=== PATIENT | female | born 1945 | race Caucasian/White ===

== ENCOUNTER 2017-01-02 16:04 | Inpatient (IN) | payer MEDICARE ==
[~2017-01-02] VITALS: Ht 165.1 cm; Wt 54.8 kg
--- NOTE | ~2017-01-02 | ECH ---
Transthoracic Echocardiography Report (TTE) Demographics Patient Name RICCI CEVALLOS Date of Study 01/04/2017 J Patient Number [id number] Visit Number [id number] Date of 1945 Room Number 420 Accession Number [id number] Gender Female Age 71 year(s) Referring Tolu Levy MD Supervisor [employer] Veronica Hudson [facility] Physician Physician Himanshu Wilson MD Radiation Oncology Therapist Physician José Supervising Ordering Physician Tolu Levy MD, MD/P Nurse Stress Extrusion Press Operator Conclusions Contractility Score Summary Normal Left Ventricular contractility was noted. Summary Technically difficult exam. The estimated left ventricular ejection fraction is 60-65%. Mild to moderate left ventricular hypertrophy. Diastolic assessment reveals Grade I diastolic dysfunction. Bubble study was done, bubbles crossed to the left atrium suggesting a PFO or ASD. No significant valvular abnormalities. The ascending aorta appears mildly dilated. The maximum diameter measures 3.65 cm. Recommendation The patient will be given the results of this study by the physician who ordered the exam. Procedure Type of Study TTE procedure:Echo Complete SF. Procedure Date Date: 01/04/2017 Start: 11:39 AM Technical Quality: Fair due to patient immobility. Indications:CVA and Hypertension. Appropriate Use Criteria: 9 Contrast Medium: Bubble Study. Height: 65 inches Weight: 126 pounds BSA: 1.63 m Rhythm: Within normal limits HR: 69 bpm BP: 176/70 mmHg M-Mode/2D Measurements LV Diastolic Dimension: 4.2 cm LV Systolic Dimension: 3.32 cm LV Septum Diastolic: 1.3 cm LV PW Diastolic: 1.1 cm AO Root Dimension: 3.11 cm Cardiac Output: 5.06 l/min LA Dimension: 3.25 cm Cardiac Index: 3.1 l/min*m LA volume index: 31 ml/m LVOT: 1.98 cm RV Base: 2.88 cm LVOT VTI: 23.82 cm RV Mid: 2.08 cm LV Stroke volume: 73.31 ml RV Length: 5.76 cm LV Stroke volume index: 44.98 ml/m Doppler Measurements AV Peak Velocity: 1.25 m/s MV Peak E-Wave: 0.56 m/s AV Peak Gradient: 6.25 mmHg MV Peak A-Wave: 0.73 m/s AV Mean Gradient: 3.06 mmHg MV E/A Ratio: 0.78 LVOT Peak Velocity: 1.24 m/s MV P1/2t: 74.1 msec AV Area (Continuity):2.5 cm MV Deceleration Time: 255.4 msec TR Velocity:2.53 m/s MV Area (PHT): 2.97 cm TR Gradient:25.52 mmHg Estimated RAP:3 mmHg Estimated PASP: 28.52 mmHg Estimated RVSP: 29 mmHg RA Area: 11.93 cm Findings Left Ventricle The left ventricle is normal in size . Mild to moderate left ventricular hypertrophy. Diastolic assessment reveals Grade I diastolic dysfunction. Right Ventricle Normal right ventricle structure and function. Left Atrium Normal left atrial size. Bubble study was done, bubbles crossed to the left atrium suggesting a PFO or ASD. Right Atrium Normal right atrial size. Mitral Valve Normal mitral valve structure and function. Aortic Valve Normal aortic valve structure and function. Tricuspid Valve Normal tricuspid valve structure and function. Mild tricuspid regurgitation by color Doppler. Pulmonic Valve Normal pulmonic valve structure and function. Pericardial Effusion No evidence of pericardial effusion. Miscellaneous The ascending aorta appears mildly dilated. The maximum diameter measures 3.65 cm. Pleural Effusion No evidence of pleural effusion. Contractility Score LV regional wall motion:(0-Non visualized 1-Normal 2-Hypokinesis 3-Akinesis 4-Dyskinesis 5-Aneurysm) Signature
--- NOTE | 2017-01-04 07:50 | HP ---
ADMIT: 01/02/2017 RM/LOC: 420 [facility] MR#: [id number] [address] [address] GABRIELLE CEVALLSO [address] [place] [address] History and Physical SEX: F AGE: 71 : 1945 DATE OF SERVICE: CHIEF COMPLAINT AND HISTORY OF PRESENT ILLNESS: She presented to the emergency room with family, with some subtle changes in her mental status over the last 24 hours. According to family, she has been a little slow mentally, maybe a little confused, they thought her speech has altered, thought her gait was a little more unsteady. Gabrielle acknowledges the change, but she denies any other symptoms such as headache, nausea, vomiting, or pain anywhere. She had an extensive evaluation in the emergency room. Her stroke scale was scored a 0. She had a head CT, however, which showed some subtle changes in the basal ganglia and a caudate nucleus, an acute ischemic infarct cannot be ruled out. MRI was suggested. There were also some mild chronic small vessel ischemic changes, and some mild brain atrophy. Various laboratory studies were unrevealing. Chest x-ray and CTA of the chest were unrevealing. We recommend that she be placed OPO on telemetry, where she will be monitored closely for any additional changes and we will do an MRI of the brain with contrast tomorrow. The patient is agreeable to this approach. PAST MEDICAL HISTORY: She said she had some stroke-like symptoms 4 to 5 years ago in another community, has not had any real followup since, does not see any other physicians, does not carry diagnosis of any other significant diseases, but rarely sees doctors. PAST SURGICAL HISTORY: Operations, none acknowledged. MEDICATIONS: None. ALLERGIES: NONE. FAMILY HISTORY: Mother is alive in good health. Father is of old age. SOCIAL HISTORY: She is , lives independently, works part-time. Recently, her apartment building became infested with bed bugs and she actually went to director of public safety today and got a cream for bite all over her upper and lower extremities. She is pretty miserable from it. She does smoke a pack a day and acknowledges that she will drink several beers per day frequently. REVIEW OF SYSTEMS: CONSTITUTIONAL: No chills or fever. ENT: No acute complaints. EYES: No visual complaints. NEURO: As in the above history. CVA: No chest pain. RESPIRATORY: No acute shortness of breath. GI: No abdominal pain. No report of any nausea or vomiting. : No bladder changes. SKIN: She has a bug bite, thought to be bedbugs. HEMATOLOGIC: No known history of bleeding or blood clots. PSYCH: No known ADMIT: 01/02/2017 RM/LOC: 420 [facility] MR#: [id number] [address] [address] [place] [address] History and Physical SEX: F AGE: 71 : 1945 history of psychiatric illness. PHYSICAL EXAMINATION: GENERAL: She is a pleasant female, alert and oriented. She is, however, slow to respond to questions and answers. I do not discern any definite dysarthria or aphasia, however. VITAL SIGNS: Reviewed as she is moderately hypertensive with systolics running about 160, diastolics 100; saturation 93%; sinus rhythm, less than 100; respiratory rate is normal; and she is afebrile. ENT: TMs are clear. Oropharynx is clear, but her teeth are in very poor repair. She is edentulous on top and many of her teeth are missing on the bottom and the ones that are they are carious. NECK: No neck masses. I did not listen for bruits. HEART: Regular rhythm. No murmurs heard. LUNGS: Clear throughout. ABDOMEN: Nontender. No masses. No organomegaly. BREAST: Not performed. PELVIC: Not performed. RECTAL: Not performed. SKIN: She has bug bites scattered about her arms and legs, none of them appear obviously infected. EXTREMITIES: Upper extremities are otherwise normal. Lower extremities; no swelling in her legs, with palpable pulses in her feet. NEURO: No arm drift. No leg weakness. Normal hahvbe-bi-rhsd and heel-to- dimas tests. No definite dysarthria or aphasia as noted. Eye movements are full. No other apparent cranial nerve abnormality. PSYCH: She is calm, not overtly anxious or depressed. IMPRESSION: Mental status changes as described. No definite stroke symptoms, but questionable findings of subacute cerebrovascular accident on her head CT. PLAN: She will be placed on observation on telemetry. We will plan MRI of her brain as discussed for tomorrow and then proceed if still suspicion for other "stroke" workup, to include of giving her 1 adult aspirin tonight in the emergency room. Sea Motley MD/ shawna JOB #: [id number] CC: Sea Motley, Attending Physician Sea Motley, Family Physician
--- NOTE | 2017-01-09 18:11 | ER ---
ADMIT: 01/02/2017 RM/LOC: 420 [facility] MR#: [id number] [address] [facility] [address] [place], [place] [address] RICCI CEVALLOS [address] [place] [address] Emergency Room Report SEX: F AGE: 71 : 1945 DATE: 01/02/2017 ADDENDUM: HISTORY OF PRESENT ILLNESS: This patient brought into the ER by her brother because he had noticed since yesterday, she seems to be drooling, drifting to one side and that she was slurring her words. He also notices that she is weak and she has fallen several times, which she states is very abnormal for her. PHYSICAL EXAMINATION: GENERAL: She is alert. She answers questions appropriately, but she is very slow to answer and according to her brother this is very odd for her. MEDICATIONS: She does not have a doctor and does not take any medications. SOCIAL HISTORY: She smokes daily and drinks beer daily as well. IMAGING: CT scan was suspicious and could not be ruled out a basal ganglia infarct, subacute versus chronic. On a chest x-ray, did show an area of concern in the left base. CTA showed fibrosis in the lung area. I did consult with Dr. Motley concerning treatment of this patient, he came in and examined the patient and will admit her. DIAGNOSES: 1. Changes in mental status. 2. Bedbug bites. Please see Dr. Motley's dictation for further treatment. ALINA Morales / Vern Melo MD / deidral JOB #: [id number] CC: Sea Motley MD, Attending Physician Sea Motley MD, Family Physician
--- NOTE | 2017-01-11 07:21 | DS ---
ADMIT: 01/03/2017 RM/LOC: 420 [facility] MR#: [id number] [address] [address] GABRIELLE MRAIN [address] [place] [address] General Discharge Summary SEX: F AGE: 71 : 1945 ADMISSION DATE: 01/03/2017 DISCHARGE DATE: 01/05/2017 FINAL DIAGNOSES: 1. Acute right cerebrovascular accident, right periventricular infarct. 2. Uncontrolled benign essential hypertension. 3. Dyslipidemia. 4. Chronic obstructive pulmonary disease. 5. Presumptive patent foramen ovale. 6. Carotid atherosclerosis. 7. Vitamin B12 deficiency. 8. Smoker. 9. Presumptive bed bug infestation. NARRATIVE: Gabrielle Marin was a [facility] patient admitted after first being seen in the emergency room with concerns about mental status changes, gait difficulty, and then the equivocal CT scan. See the history and physical in the electronic record for details. Notes she had been brought in by family a little more slower than normal mentally with concern about altered speech and some gait difficulty. These were the main concerns. Her main finding on exam was that with gait she tended to list to the left. Past medical history of some type of stroke-like symptoms 4 to 5 years ago in another community, but no followup since rarely sees physicians, so really no other documented past medical history. On a side note, she had recently been seen actually within last 24 hours in Dermatology office with concern about bed bugs. My initial exam revealed to be pleasant, slow to respond to questions and answers, but oriented x3. I cannot discern any definite dysarthria or aphasia. However, it is fair to say she did tend to lean a little to the left when she stood up. I did not have her stand up on the exam gurney, but I did the next morning. Her cardio respiratory exam at that time seemed unremarkable. Her chest x-ray showed some changes in her left chest, which are related to some old trauma, which she acknowledged, but is also feeling that she probably has some chronic obstructive pulmonary disease which fits her smoking history. Further studies are summarized in the electronic record. Her CBC was unremarkable as was the urinalysis. Electrolytes were normal. BUN 4, creatinine 0.7, cholesterol was 165, LDL 87, and HDL 51. Blood sugar normal. B12 low at 174. Hemoglobin A1c 5.9%. Methylmalonic acid less than 0.2. MRI of the brain with and without contrast on January 03 showed acute right periventricular ischemic infarct plus mild small-vessel changes and some mild atrophy and some mild ethmoid maxillary sinus disease. Doppler ultrasound carotids showed fairly significant atherosclerotic disease, but no findings to suggest hemodynamically significant stenosis on either side. The patient was admitted to acute care. Previously mentioned studies and summarize were obtained. She was maintained on telemetry, started on aspirin. PT and OT and Speech Therapy consults were undertaken. She did not have any ADMIT: 01/03/2017 RM/LOC: 420 [facility] MR#: [id number] [address] [place] [id number] GABRIELLE MARIN [address] [place] [address] General Discharge Summary SEX: F AGE: 71 : 1945 significant speech swallowing issues. She was felt to be a candidate for rehab from the other evaluations and [facility] did evaluate her and accepted her as a patient. There was a B12 low. She was given injectable B12. She was started on lipid-lowering therapy. Her blood pressures were significantly elevated. She was started on medication for that as well. Smoking cessation was discussed as well as avoidance of heavy drinking of alcohol. The PFO was noted on the echocardiogram. EF was 60% to 65%, mild LVH, grade 1 diastolic dysfunction and may actually said it could be a PFO or possibly an ASD. It is our recommendation that anti-platelet therapy is the treatment of choice for that condition in her current situation. Dismissed to [facility] on Celexa 20 mg at bedtime, Lipitor 10 mg at bedtime, Maxzide 25 one daily, Norvasc 10 mg daily, Pepcid 20 mg b.i.d., Plavix 75 mg daily, and vitamin B12 injection 1000 mcg daily for three days. Continue Lovenox and Habitrol. PROGNOSIS: Good if the patient continues the medications and abstains from tobacco or excessive alcohol use. Sea Motley MD/ deidral JOB #: [id number] CC: Sea Motley MD, Attending Physician Sea Motley MD, Family Physician
[2017-01-18] MEDS ORDERED: ASA325 MG PO (16:18)
[2017-01-18] MEDS ORDERED: WELLBUTRIN SR150 M1 PO (16:19)
[2017-01-18] MEDS ORDERED: LIPITOR DPS10 MG PO (16:19)
[2017-01-18] MEDS ORDERED: ZESTRIL DPS5 MG PO (16:19)
[2017-01-18] MEDS ORDERED: VITAMIN B-121000 MCG PO (16:20)
[2017-01-18] MEDS ORDERED: NICODERM CQ1 EAC1 TD (16:21)
== END 2017-01-05 12:28 | disposition short-term general hospital (02) | DRG 64 ==
LOC: ER 16:04 → 4PCU 22:10
PROVIDERS: ADMIT Family Medicine
DX: I63.9 Cerebral infarction, unspecified (principal); G93.40 Encephalopathy, unspecified; J44.9 Chronic obstructive pulmonary disease, unspecified; Q21.1 Atrial septal defect; B88.8 Other specified infestations; R47.81 Slurred speech; F17.210 Nicotine dependence, cigarettes, uncomplicated; I65.23 Occlusion and stenosis of bilateral carotid arteries; I10 Essential (primary) hypertension; E78.5 Hyperlipidemia, unspecified; I65.29 Occlusion and stenosis of unspecified carotid artery; E53.8 Deficiency of other specified B group vitamins

== ENCOUNTER 2017-01-05 08:54 | Inpatient (IN) | payer MEDICARE ==
[~2017-01-05] VITALS: Ht 165.1 cm; Wt 54.4 kg
[2017-01-18] MEDS ORDERED: ASA325 MG PO (16:18)
[2017-01-18] MEDS ORDERED: ZESTRIL DPS5 MG PO (16:19)
[2017-01-18] MEDS ORDERED: WELLBUTRIN SR150 M1 PO (16:19)
[2017-01-18] MEDS ORDERED: LIPITOR DPS10 MG PO (16:19)
[2017-01-18] MEDS ORDERED: VITAMIN B-121000 MCG PO (16:20)
[2017-01-18] MEDS ORDERED: NICODERM CQ1 EAC1 TD (16:21)
--- NOTE | 2017-02-22 09:55 | DS ---
ADMIT: 01/05/2017 RM/LOC: 606 [facility] MR#: [id number] [id number] [facility] [address] [place], [place] [address] RICCI CEVALLOS [address] [place] [address] General Discharge Summary SEX: F AGE: 71 : 1945 ADMISSION DATE: 01/05/2017 DISCHARGE DATE: 01/17/2017 DISCHARGE DIAGNOSES: Stroke 01.1, left body involvement, right brain, I63.511 cerebral infarction due to unspecified occlusion or stenosis of the right middle cerebral artery, onset 01/02/2017, comorbid conditions, per initial H and P. Other diagnoses per hospital course blow. HOSPITAL COURSE: Please see my initial H and P for details prior to transfer to the IRU. Lovenox was continued for DVT prophylaxis. Pain and bowel regimen were adjusted. Melatonin for insomnia. Transdermal patch of nicotine for 1.5 pack per day smoking history, and bupropion was prescribed for smoking cessation as well as links to smoking cessation discharge tool kit done. B12 was replaced for deficiency with intermuscular injection daily. Lipitor adjusted for hyperlipidemia. Colace changed with Senokot-S for constipation. Norvasc decreased to 5 mg for nonspecific low blood pressure readings in the context of hypertension. Lab was monitored regularly. Dietitian followed to optimize nutrition. Pharmacy followed to optimize medication management. Celexa adjusted for depression. Melatonin no longer necessary. Pepcid adjusted for GERD. Hydralazine and Nitrostat discontinued. Hypokalemia replaced with KCl. Lovenox no longer necessary by 01/09/2017. Hypertension was well controlled. Decided to switch antihypertensives could probably be managed on just 1, so we changed the Zestril 5 mg p.o. daily and decreased Norvasc and Maxzide. Pepcid and Celexa discontinued, no longer necessary. By 01/11/2017, speech and language pathology approved for regular diet, extra sauces, thin liquids. Zestril increased to 10 mg. Maxzide and Norvasc discontinued. PVRs came back normal 151 and 122. Labs followed up on before discharge. Scheduled Senokot-S no longer necessary. Kept p.r.n. for constipation as needed. The patient was medically stable at time of discharge. Please see IRU interdisciplinary discharge summary for details regarding progress in therapy. DISCHARGE DISPOSITION: Home with brother then daughter after that. No equipment needed upon discharge. DISCHARGE MEDICATIONS: Please see discharge med rec. Continue Habitrol 7 mg x1 week then stop. FOLLOWUP: PCP within 1 month. Aron Mora MD/ shawna JOB #: [id number] CC:
== END 2017-01-17 11:20 | disposition home or self-care (01) | DRG 57 ==
LOC: 6IRU 12:20
PROVIDERS: ADMIT Physical Medicine & Rehabilitation
PROC: F08Z0FZ Bathing/Showering Techniques Treatment using Assistive, Adaptive, Supportive or Protective Equipment (ICD-10-PCS; principal; 2017-01-05)
PROC: F08Z2FZ Grooming/Personal Hygiene Treatment using Assistive, Adaptive, Supportive or Protective Equipment (ICD-10-PCS; principal; 2017-01-05)
PROC: F06Z3ZZ Aphasia Treatment (ICD-10-PCS; principal; 2017-01-05)
PROC: F07Z9ZZ Gait Training/Functional Ambulation Treatment (ICD-10-PCS; principal; 2017-01-05)
PROC: F07Z5ZZ Bed Mobility Treatment (ICD-10-PCS; principal; 2017-01-05)
DX: I69.320 Aphasia following cerebral infarction (principal); I69.354 Hemiplegia and hemiparesis following cerebral infarction affecting left non-dominant side; Q21.1 Atrial septal defect; R00.1 Bradycardia, unspecified; I69.313 Psychomotor deficit following cerebral infarction; I69.318 Other symptoms and signs involving cognitive functions following cerebral infarction; I69.391 Dysphagia following cerebral infarction; I69.312 Visuospatial deficit and spatial neglect following cerebral infarction; R13.10 Dysphagia, unspecified; I10 Essential (primary) hypertension; G47.00 Insomnia, unspecified; E11.9 Type 2 diabetes mellitus without complications; E78.5 Hyperlipidemia, unspecified; F17.210 Nicotine dependence, cigarettes, uncomplicated; K59.00 Constipation, unspecified; J44.9 Chronic obstructive pulmonary disease, unspecified; I65.29 Occlusion and stenosis of unspecified carotid artery; E87.6 Hypokalemia; E53.8 Deficiency of other specified B group vitamins; R03.1 Nonspecific low blood-pressure reading; K21.9 Gastro-esophageal reflux disease without esophagitis